=== PATIENT | male | born 1950 | race Caucasian/White ===

== ENCOUNTER → 2021-05-31 | Outpatient (CLI) | payer OTHER ==
[~2021-05-31] MED LIST: ACYCLOVIR 400400 MG PO; ASA81BEC PO; C-10001000 MG PO; CHLORPHENIRAMINE4 M1 PO; D3-501250 MCG PO; FISH OIL 1,001000 M3 PO; OLIVE LEAF EXT250 MG PO; SUPER THERAVIT1 EACH PO; WILZIN25 MG PO
== END ==
LOC: SJCVCIMAG 06:19
PROVIDERS: ATTEND Internal Medicine
DX: I08.3 Combined rheumatic disorders of mitral, aortic and tricuspid valves (principal); R06.00 Dyspnea, unspecified; I10 Essential (primary) hypertension; Z79.82 Long term (current) use of aspirin; Z79.899 Other long term (current) drug therapy

== ENCOUNTER → 2021-06-02 | Outpatient (CLI) | payer OTHER | LOC: SJCVC 14:02 | PROVIDERS: ATTEND Internal Medicine | DX: R07.9 Chest pain, unspecified (principal); I10 Essential (primary) hypertension; N52.1 Erectile dysfunction due to diseases classified elsewhere; R60.9 Edema, unspecified; N40.0 Benign prostatic hyperplasia without lower urinary tract symptoms; Z68.29 Body mass index [BMI] 29.0-29.9, adult; Z79.82 Long term (current) use of aspirin; Z79.899 Other long term (current) drug therapy ==

== ENCOUNTER 2021-06-04 09:33 | Inpatient (IN) | payer OTHER ==
[2021-06-04] VITALS (13 sets, daily range): BP systolic 130–149; BP diastolic 69–86
[~2021-06-04] VITALS: Ht 170.2 cm; Wt 75.7 kg
[2021-06-04] MEDS ORDERED: ACYCLOVIR 400400 MG PO (10:45)
[2021-06-04] MEDS ORDERED: C-10001000 MG PO (10:46)
[2021-06-04] MEDS ORDERED: ASA81BEC PO (10:47)
[2021-06-04] MEDS ORDERED: CHLORPHENIRAMINE4 M1 PO (10:49)
[2021-06-04] MEDS ORDERED: SUPER THERAVIT1 EACH PO (10:50)
[2021-06-04] MEDS ORDERED: WILZIN25 MG PO ×2 (10:50→10:51)
[2021-06-04] MEDS ORDERED: FISH OIL 1,001000 M3 PO (10:51)
[2021-06-04] MEDS ORDERED: OLIVE LEAF EXT250 MG PO (10:51)
[2021-06-04] MEDS ORDERED: D3-501250 MCG PO (10:52)
--- NOTE | 2021-06-04 16:37 | NUR ---
PT STATES HE IS "DEATHLY AFRAID" OF NEEDLES AND THAT HE IS REFUSING ALL BLOOD DRAWS. DR. MORALES WAS CALLED AND INFORMED THAT PT IS REFUSING APTT, INR AND CBC ORDERED. DR. MORALES STATES OK AND TO CANCEL THOSE 1ST ORDERED BLOOD DRAWS. PT REQUESTED PICC LINE OR CENTRAL LINE OR VALIUM. DR. MORALES STATED NO.
--- NOTE | 2021-06-04 20:43 | NUR ---
PT ARRIVED TO UNIT AT 1250 FROM STEPDOWN NURSE. PT WAS CATHED PER REPORT WITH NO INTERVENTION AND MANUAL PRESSURE WAS HELD WITH HEMOSTASIS OF 1230. PT WAS ON STRICT BED REST UNTIL 1550. ONCE PT WAS DONE WITH BED REST, PT AMBULATED TO BATHROOM WITH RN AND USED TOLIET. PT DENIES ANY PAIN.
[2021-06-04 23:10] LABS: ABSOLUTE NEUTROPHILS 5.2 thou/uL (1.4-8.2); BASOPHILS 0.3 % (0.0-2.0); EOSINOPHILS 2.4 % (0.0-3.0); HEMATOCRIT 43.5 % (42.0-52.0); HEMOGLOBIN 14.4 gm/dL (14.0-18.0); LYMPHOCYTES 32.1 % (24.0-44.0); MCH 29.8 pg (26.0-34.0); MCHC 33.1 g/dL (28.0-37.0); MONOCYTES 9.9 % (1.0-8.0); PLATELET COUNT 238 thou/uL (150-400); POLYS 55.3 % (36.0-66.0); RBC 4.84 mil/uL (4.50-6.00); RDW 13.5 % (10.5-14.5); WBC 9.4 thou/uL (4.0-11.0)
[2021-06-04 23:23] LABS: CALCIUM 7.9 mg/dL (8.5-10.1); CREATININE 0.9 mg/dL (0.7-1.3); POTASSIUM 3.9 mmol/L (3.5-5.1)
[2021-06-04 23:29] LABS: ALBUMIN 3.3 g/dL (3.4-5.0); TOTAL BILIRUBIN 0.5 mg/dL (0.2-1.0); TOTAL PROTEIN 6.2 g/dL (6.4-8.2)
[2021-06-05 00:04] VITALS: BP 133/76
[2021-06-05 06:05] VITALS: BP 128/77
--- NOTE | 2021-06-05 06:32 | NUR ---
PT BEEN RESTING IN NO ACUTE DISTRESS.A/OX4.VSS.S/P CARDIAC AKUA,RIGHT GROIN DRESSING CDI,NO HEMATOMA OR ACTIVE BLEEDING TO RIGHT GROIN THIS SHIFT.PT HAVE MVD, CABG PLANNED FOR MONDAY.ON HEPARIN DRIP PER CARDIOLOGY PROTOCOL.PT AGREED FOR LABS DRAW TO BE DRAWN AFTER BEING GIVEN ANXIETY MEDS.PT DENIES CHEST PAIN.VOIDS VIA URINAL.DENIES ANY NEEDS AT THIS TIME.WILL CONT TO MONITOR PER POC.
[2021-06-05 08:26] VITALS: BP 123/67
[2021-06-05 09:54] LABS: URINE BILIRUBIN NEGATIVE (Negative); URINE BLOOD NEGATIVE (Negative); URINE CLARITY CLEAR; URINE COLOR YELLOW; URINE GLUCOSE-RANDOM* NEGATIVE (Negative); URINE KETONES 1+ (Negative); URINE LEUKOCYTES-REFLEX NEGATIVE (Negative); URINE NITRITE-REFLEX NEGATIVE (Negative); URINE PROTEIN (DIPSTICK) NEGATIVE (Negative); URINE UROBILINOGEN 0.2 E.U./dl (0.2-1.0)
--- NOTE | 2021-06-05 10:53 | EKG ---
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
[2021-06-05 11:07] VITALS: BP 135/74
[2021-06-05 12:44] LABS: CHOLESTEROL 160 mg/dL (<200); HDL CHOLESTEROL 50 mg/dL (>40); LDL CHOLESTEROL 95 mg/dL (<100); TC:HDL 3.2 Ratio (Not establshd); TRIGLYCERIDE 79 mg/dL (<150); VLDL 16 mg/dL (<40)
--- NOTE | 2021-06-05 15:04 | NUR ---
ASSUMED PATIENT CAre at 0700. a/o x4. denies chest pain. on heparin gtt. no stress noted. solwly towards poc goals.
[2021-06-05 15:49] VITALS: BP 124/65
[2021-06-05 19:25] VITALS: BP 127/65
[2021-06-06 04:23] VITALS: BP 119/57
[2021-06-06 05:36] LABS: GLYCOHEMOGLOBIN (HGB A1C) 5.5 % (4.8-5.6)
--- NOTE | 2021-06-06 06:30 | NUR ---
Pt slept well most of night. Mild anxiety regarding upcoming procedure noted. Questions and concerns addressed. Pt expressed that anxiety improved. Monitor showed SR. Denied SOB. Denied chest pain. Denied dizziness. Heparin gtt infusing without titration this shift. Pt voided w/o via urinal. No BM.
[2021-06-06 07:05] VITALS: BP 125/57
--- NOTE | 2021-06-06 09:04 | HC ---
[facility] [place] [address] CONSULTATION Name: ONELIA COHN Room #: 200-I [facility] Vernell Heard#: [id number] Admission: 06/04/21 Attend Phys: Oswaldo Junior Discharge: Date of : 48 Report #: [id number] THIS REPORT FOR: cc: Abhi Price MD, Steven E. MD Forman, John M. MD ~ We were asked to see the patient by Dr. Junior. HISTORY OF PRESENT ILLNESS: The patient is a 70-year-old with coronary artery disease. The patient states he began having exertional angina in December or January. He attributed this to wearing an N95 mask, but when the patient had similar chest discomfort when pushing his lawnmower, he realized that this could be coronary artery disease. Stress test was ordered and ultimately cardiac catheterization was done today by Dr. Junior, this shows a 95% distal left main stenosis in addition to other disease. Left ventricular function appears normal by ventriculogram. The patient states he is a generally healthy fellow. He does not take lipid medicine at home or at least has until recently and denies having problems with hypertension and diabetes mellitus. ALLERGIES: None known. HOME MEDICATIONS: The patient takes olive oil extract as a natural antibiotic for chronic bronchitis. 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 He is . The patient denies tobacco use. FAMILY HISTORY: Positive for coronary artery disease, but this appears to be in males older than 55 years old. REVIEW OF SYSTEMS: GENERAL: No weight change, fever, or chills. EYES: Wears glasses. HEENT: No headache, sore throat, or ear problems. RESPIRATORY: Chronic bronchitis that is treated with this natural medicine. CARDIAC: Exertional angina. As mentioned, no rest pain. No night pain. GASTROINTESTINAL: Denies nausea, vomiting, diarrhea or blood. GENITOURINARY: Denies urgency, frequency, blood. MUSCULOSKELETAL: Denies bone or joint pain. SKIN: Denies rash or infection. NEUROLOGIC: Denies motor or sensory dysfunction. ENDOCRINE: Denies goiter or tremor. [facility] [address] [place] [address] CONSULTATION Name: CHRISFÁTIMAALMAONELIA Room #: 200-I [facility]#: [id number] Admission: 06/04/21 Attend Phys: Oswaldo Junior Discharge: Date of : 48 Report #: [id number] PHYSICAL EXAMINATION: GENERAL: The patient is lying in bed, awake and alert. VITAL SIGNS: Temperature 36.6, heart rate 80, respiratory rate 16-20, blood pressure 140/75, pulse ox 98 on room air. HEENT: No scleral icterus. No arcus. NECK: No mass, no bruit. CHEST: Clear to auscultation. HEART: Rhythm regular, no murmur. ABDOMEN: Soft. EXTREMITIES: No clubbing, cyanosis or edema, 2+ dorsalis pedis pulses. SKIN: No rash or infection. MUSCULOSKELETAL: No bone or joint asymmetry or deformity. PSYCHIATRIC: Shows insight into problem, oriented x 3, pleasant fellow. ASSESSMENT AND PLAN: The patient has important left main coronary artery disease in the setting of good ventricular function and increasing exertional angina. We have recommended coronary artery bypass surgery. Risks include but are not limited to bleeding, infection, anesthesia risks, heart and lung problems, stroke and . Options and alternatives were reviewed. The patient understands all of this and wishes to proceed. We will try to arrange surgery for Monday. It is a privilege to participate in this challenging patient's care. Thank you for the consult. <ELECTRONICALLY SIGNED> By: Chandana Godwin MD 06/06/21 0904 1546 2358 Chandana Godwin MD /nt
[2021-06-06 11:30] VITALS: BP 122/58
[2021-06-06 15:36] VITALS: BP 129/70
--- NOTE | 2021-06-06 18:15 | NUR ---
ASSESSMENT CHARTED - MEDS PER ARIEL - BOBBY DEIT AND FLUIDS. NO CO'S OF PAIN OR NAUSEA. UP IN ROOM TOLERATED. HEPARIN CONTINUES PER PROTOCOL. PT FOR OPEN HEART SURGERY IN THE AM. NO CO'S AT THE PRESENT TIME.
[2021-06-06 18:40] VITALS: BP 142/75
[2021-06-06 20:04] VITALS: BP 132/76
[2021-06-07] VITALS (35 sets, daily range): BP systolic 81–143; BP diastolic 45–71
--- NOTE | 2021-06-07 06:21 | NUR ---
PT UP THIS AM WITH OUT ANY C/O PAIN, NPO SINCE MNOC, CONSENT SIGNED, UP TO VOID IN BR, VSS,FAMILY AT BEDSIDE,REPORT GIVEN TO PREOP PT LEFT PER CART.
[2021-06-07 12:33] LABS: HEMATOCRIT 26.3 % (42.0-52.0); MCH 30.6 pg (26.0-34.0); MCHC 34.4 g/dL (28.0-37.0); MCV 89.1 fL (80.0-100.0); RBC 2.95 mil/uL (4.50-6.00); RDW 13.4 % (10.5-14.5); WBC 10.8 thou/uL (4.0-11.0)
[2021-06-07 12:49] LABS: APTT 27.3 Seconds (24.5-32.8); INR 1.42; PROTIME 15.2 Seconds (10.5-12.1)
[2021-06-07 13:31] LABS: POC BE 5 mmol/L (-2.0 to +3.0); POC CA IONIZED 4.7 mg/dL (4.5-5.3); POC GLUCOSE 109 mg/dL (70-99); POC HEMOGLOBIN 12.9 g/dL (14.0-18.0); POC SODIUM 138 mmol/L (136-145); POC pCO2 30.7 mmHg (35.0-45.0); POC pH 7.552 (7.360-7.450)
[2021-06-07 13:31] LABS: POC BE 2 mmol/L (-2.0 to +3.0); POC CA IONIZED 4.6 mg/dL (4.5-5.3); POC GLUCOSE 144 mg/dL (70-99); POC HCO3 26.5 mmol/L (22.0-26.0); POC HEMOGLOBIN 12.6 g/dL (14.0-18.0); POC SODIUM 137 mmol/L (136-145); POC pCO2 39.2 mmHg (35.0-45.0); POC pH 7.438 (7.360-7.450)
[2021-06-07 13:32] LABS: POC BE -3 mmol/L (-2.0 to +3.0); POC CA IONIZED 4.7 mg/dL (4.5-5.3); POC GLUCOSE 152 mg/dL (70-99); POC HCO3 22.5 mmol/L (22.0-26.0); POC HEMOGLOBIN 10.2 g/dL (14.0-18.0); POC POTASSIUM 3.7 mmol/L (3.5-5.1); POC SODIUM 142 mmol/L (136-145); POC pCO2 40.9 mmHg (35.0-45.0); POC pH 7.349 (7.360-7.450)
[2021-06-07 13:32] LABS: POC BE 1 mmol/L (-2.0 to +3.0); POC GLUCOSE 141 mg/dL (70-99); POC HEMOGLOBIN 9.5 g/dL (14.0-18.0); POC POTASSIUM 5.1 mmol/L (3.5-5.1); POC SODIUM 136 mmol/L (136-145); POC pCO2 31.2 mmHg (35.0-45.0); POC pH 7.495 (7.360-7.450)
[2021-06-07 13:32] LABS: POC BE 0 mmol/L (-2.0 to +3.0); POC CA IONIZED 5.3 mg/dL (4.5-5.3); POC GLUCOSE 140 mg/dL (70-99); POC HCO3 24.8 mmol/L (22.0-26.0); POC HEMOGLOBIN 8.8 g/dL (14.0-18.0); POC POTASSIUM 3.9 mmol/L (3.5-5.1); POC SODIUM 139 mmol/L (136-145); POC pCO2 39.6 mmHg (35.0-45.0); POC pH 7.404 (7.360-7.450)
[2021-06-07 13:32] LABS: POC BE 1 mmol/L (-2.0 to +3.0); POC CA IONIZED 4.1 mg/dL (4.5-5.3); POC GLUCOSE 161 mg/dL (70-99); POC HCO3 24.3 mmol/L (22.0-26.0); POC HEMOGLOBIN 8.8 g/dL (14.0-18.0); POC POTASSIUM 4.9 mmol/L (3.5-5.1); POC SODIUM 139 mmol/L (136-145); POC pCO2 33.6 mmHg (35.0-45.0); POC pH 7.467 (7.360-7.450)
[2021-06-07 13:32] LABS: POC BE 1 mmol/L (-2.0 to +3.0); POC CA IONIZED 4.2 mg/dL (4.5-5.3); POC GLUCOSE 160 mg/dL (70-99); POC HCO3 25.2 mmol/L (22.0-26.0); POC HEMOGLOBIN 8.8 g/dL (14.0-18.0); POC POTASSIUM 4.9 mmol/L (3.5-5.1); POC SODIUM 138 mmol/L (136-145); POC pCO2 38.2 mmHg (35.0-45.0); POC pH 7.427 (7.360-7.450)
[2021-06-07 13:32] LABS: POC BE 3 mmol/L (-2.0 to +3.0); POC CA IONIZED 4.2 mg/dL (4.5-5.3); POC GLUCOSE 156 mg/dL (70-99); POC HCO3 27.1 mmol/L (22.0-26.0); POC HEMOGLOBIN 8.8 g/dL (14.0-18.0); POC POTASSIUM 4.6 mmol/L (3.5-5.1); POC SODIUM 139 mmol/L (136-145); POC pCO2 41.3 mmHg (35.0-45.0); POC pH 7.425 (7.360-7.450)
--- NOTE | 2021-06-07 14:00 | NUR ---
PT recieved from the OR sedated and intubated. Occ by the OR nursing team and Anes. RT called and placed on the Vent. All lines and Chest tubes attached and allwaveforms look good. monitor shows NSR no ectoptics. pacemaker off. chest tubes draining minimal drainage. the only Drip at present is Precedex. for comfort. See hemodyanmic in CCFS. will process with CAGB Standing orders.
[2021-06-07 14:08] LABS: HEMATOCRIT 29.3 % (42.0-52.0); HEMOGLOBIN 9.9 gm/dL (14.0-18.0); MCH 29.9 pg (26.0-34.0); MCHC 33.6 g/dL (28.0-37.0); MCV 89.1 fL (80.0-100.0); RBC 3.29 mil/uL (4.50-6.00); RDW 13.6 % (10.5-14.5); WBC 14.8 thou/uL (4.0-11.0)
[2021-06-07 14:18] LABS: CALCIUM 7.7 mg/dL (8.5-10.1); CREATININE 0.8 mg/dL (0.7-1.3); MAGNESIUM 2.3 mg/dL (1.8-2.4); POTASSIUM 3.9 mmol/L (3.5-5.1)
[2021-06-07 14:23] LABS: APTT 26.6 Seconds (24.5-32.8); INR 1.19; PROTIME 12.9 Seconds (10.5-12.1)
[2021-06-07 14:43] LABS: BE(vivo) -3.1 mmol/L (-2 to +3); HCO3 22.1 mmol/L (22.0-26.0); PCO2 39.9 mmHg (35.0-45.0); PO2 170.3 mmHg (80.0-100.0); pH 7.361 (7.360-7.450); sO2 99.1 % (92.0-98.0)
--- NOTE | 2021-06-07 15:00 | NUR ---
Dr Godwin and Titi here for support. CABG Orders done. Updated as needed.
--- NOTE | 2021-06-07 16:00 | NUR ---
No changes to his assessment. at bedside and update given, questions answered. Phone number to the Unit given to her. Plan of Care discussed. Dr Godwin has spoken to her.
--- NOTE | 2021-06-07 16:00 | NUR ---
Dr Godwin here to see. Updated on pt.
[2021-06-07 17:26] LABS: BE(vivo) -5.2 mmol/L (-2 to +3); HCO3 18.2 mmol/L (22.0-26.0); PCO2 28.8 mmHg (35.0-45.0); PO2 183.9 mmHg (80.0-100.0); pH 7.419 (7.360-7.450); sO2 99.3 % (92.0-98.0)
--- NOTE | 2021-06-07 17:35 | NUR ---
Pt extubated and is doing well. FS @ 40% placed. Pt states that he has post nasal drainage. HOB elevated for comfort. Will continue to monitor.
--- NOTE | 2021-06-07 19:00 | NUR ---
report given to oncoming RN.
--- NOTE | 2021-06-07 20:00 | NUR ---
DR KERNS HERE AMIO GTT DCD 250 CC ALBUMIN ORDERED. PT C/O OF NECK PAIN. WILL CONT TO MONITOR
[2021-06-08] VITALS (17 sets, daily range): BP systolic 80–118; BP diastolic 41–54
--- NOTE | 2021-06-08 06:00 | NUR ---
PT IS AWAKE AND ALERT. VSS SINUS RHYTHM. LUNGS DIMINISHED BILAT. O2 SAT 100 % ON 2 L NC PER PT REQUEST. INSULIN GTT AT 6 UNITS. LEVOPHED 3 MCG MG GTT AT 40/HR AND PRECEDEX GTT AT 3 MCG. TOTAL OF 320 CC UO 280 CC PLEURAL AND [address] THIS SHIFT. AFEBRILE CO 4.7 CI 2.4 CVP 14 STERNAL DSG INTACT WITH CARMELA DSG LEFT LEG DRESSINGS INTACT PROGRESSING TOWARD GOALS. WILL CONT TO MONITOR.
--- NOTE | 2021-06-08 06:01 | NUR ---
Pt remains stable in this shift. No s/sx of any distress indicates. He was very anxious last night after c/o dry heaving. Unable to relax ,gave Xanax 0.25 mg PO once with good result. He denies of any CP. Report can't get enough air at times. Encouraging to use I/S , deep breathing and coughing in this shift. VSS. All lines remains inplaced. Hb 6.5 mg/Dl . No obvious signs of active bleeding indicates. Will admin 1 unit of PRBC once it available. Continue working toward goals.
[2021-06-08 06:20] LABS: HEMATOCRIT 23.3 % (42.0-52.0); MCH 30.4 pg (26.0-34.0); MCHC 34.1 g/dL (28.0-37.0); MCV 89.2 fL (80.0-100.0); RBC 2.61 mil/uL (4.50-6.00); RDW 13.9 % (10.5-14.5); WBC 12.9 thou/uL (4.0-11.0)
[2021-06-08 06:26] LABS: CALCIUM 7.9 mg/dL (8.5-10.1); CREATININE 1.1 mg/dL (0.7-1.3); MAGNESIUM 2.2 mg/dL (1.8-2.4); POTASSIUM 4.2 mmol/L (3.5-5.1)
[2021-06-08 06:45] LABS: HEMOGLOBIN 7.9 gm/dL (14.0-18.0)
--- NOTE | 2021-06-08 07:15 | EKG ---
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 : 1950 Requested By: Oc Pang Order Number: [id number] MD: Nico Burciaga Measurements Intervals [place] Rate: 88 P: 75 CO: 100 QRS: 51 QRSD: 87 T: 31 QT: 363 QTc: 440 Interpretive Statements Sinus rhythm Short CO interval Abnormal R-wave progression, early transition Compared to ECG 06/05/2021 08:10:23 Short CO interval now present Electronically Signed On 06-08-2021 7:15:36 CDT by Nico Burciaga [email or web address] <ELECTRONICALLY SIGNED> By: Nico Burciaga MD, [facility] [id number] 29 Nico Burciaga MD, [facility] /EPI
--- NOTE | 2021-06-08 07:56 | NUR ---
RD consult education. S/P CABG x 4 on 06/07. Lipids under control, A1C 5.5. Prior to surgery was eating 50-100%. BMI 24. Presents low nutrition risk. Will address nutrition education needs following transfer out of ICU and at more appropriate time
--- NOTE | 2021-06-08 08:26 | EKG ---
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 : 1950 Requested By: Oc Pang Order Number: [id number] MD: Nico Burciaga Measurements Intervals [place] Rate: 90 P: 58 ND: 112 QRS: 21 QRSD: 69 T: 13 QT: 353 QTc: 432 Interpretive Statements Sinus rhythm Borderline short ND interval Abnormal R-wave progression, early transition ST elevation suggests acute pericarditis Compared to ECG 06/07/2021 16:30:29 ST (T wave) deviation now present Electronically Signed On 06-08-2021 8:26:29 CDT by Nico Burciaga [email or web address] <ELECTRONICALLY SIGNED> By: Nico Burciaga MD, FAC 06/08/21 0826 2 2 Nico Burciaga MD, [facility] /EPI
--- NOTE | 2021-06-08 09:15 | NUR ---
Chart review. S/P CABG. Cm visited with willie at bedside. Intro to cm and dcp. He lives at home with his , independent when feeling ok. No dme, manage own medication. Drives. 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 No rehab or hh in past. Will cont following as needed for dc needs. Willie requested pillow underneath bilat arms be repositioned. Cm assist pt. with that. End of visited bedside nurse in room with willie.
[2021-06-09] VITALS (14 sets, daily range): BP systolic 99–134; BP diastolic 46–58
[2021-06-09 05:13] LABS: HEMOGLOBIN 6.5 gm/dL (14.0-18.0); MCH 31.3 pg (26.0-34.0); MCHC 35.1 g/dL (28.0-37.0); MCV 89.2 fL (80.0-100.0); RBC 2.07 mil/uL (4.50-6.00); RDW 13.6 % (10.5-14.5); WBC 11.7 thou/uL (4.0-11.0)
[2021-06-09 05:17] LABS: HEMATOCRIT 18.5 % (42.0-52.0)
[2021-06-09 05:30] LABS: ALBUMIN 3.1 g/dL (3.4-5.0); CALCIUM 7.9 mg/dL (8.5-10.1); CREATININE 1.1 mg/dL (0.7-1.3); POTASSIUM 3.9 mmol/L (3.5-5.1); TOTAL BILIRUBIN 0.2 mg/dL (0.2-1.0); TOTAL PROTEIN 5.3 g/dL (6.4-8.2)
--- NOTE | 2021-06-09 07:40 | NUR ---
ASSUMMED CARE OF THIS PATIENT FROM THE NIGHT NURSE, GARY MOURA.
[2021-06-09 09:30] LABS: % SATURATION 12 % (20-39); IRON 14 ug/dL (65-175); TIBC 117 ug/dL (250-450)
[2021-06-09 15:09] LABS: HEMATOCRIT 21.6 % (42.0-52.0); HEMOGLOBIN 7.4 gm/dL (14.0-18.0)
--- NOTE | 2021-06-09 19:41 | NUR ---
PATIENT IS PROGRESSING TOWARDS OUTCOME GOALS. AT THE BEDSIDE MOST OF THE DAY. QUESTIONS ANSWERED AND REASSURANCE GIVEN WELL UPDATED ON THE POC. PATIENT IS NAUSEA FREE TODAY. 1 UNIT OF PRBC'S GIVEN. LINES DC'D PER ORDER AND UP IN THE CHAIR FOR DINNER. MONITOR NSR. VSS. GOOD PRODUCTIVE COUGH.
[2021-06-10] VITALS (17 sets, daily range): BP systolic 96–132; BP diastolic 46–60
--- NOTE | 2021-06-10 11:30 | CATHLAB ---
[facility] [place] [address] INVASIVE PROCEDURE REPORT Name: ONELIA COHN Room #: 251-P ADM IN M.R.#: [id number] Admission: 06/04/21 Attend Phys: Oswaldo Junior Discharge: Date of : 48 Report #: [id number] THIS REPORT FOR: cc: Abhi Price MD, Steven E. MD Lammoglia, Francisco J. MD ~ APPROVED REPORT Study performed: 06/04/2021 11:21:03 Patient Details Patient Status: Out-Patient Room #: The patient is a 70 year-old male Event Personnel Oswaldo Junior [employer]ater, Yeimy Boston RN RN, Nancy Hudson RTR, Robbie Turner Alison RT(R)() Monitor Procedures Performed Art Access - R femoral artery* Left Heart Cath w/or w/o Coronaries [id number] [facility] Hemostasis with Manual pressure 20846 Initial Mod Sed Same Phys/QHP Gr5y 774220, supervision of conscious sedation Indication Dyspnea, Positive stress test, Chest pain Procedure Narrative The Right Groin^ was infiltrated with 1% Lidocaine subcutaneous anesthesia. A PINNACLE 4FR Sheath #[id number] sheath was inserted into the RFA 4F^. Coronary angiography was performed using coronary diagnostic catheters. The right coronary system was accessed and visualized with a JR4 catheter. The left coronary system was accessed and visualized with a JL4 catheter. The left ventricle was accessed and visualized with a PIGTAIL catheter. Hemostasis was obtained with manual pressure following sheath removal without any complications. The patient tolerated the procedure well and there were no complications associated with the procedure. There was no hematoma. Intraoperative Conscious Sedation Versed 2 mg [facility] [place] [address] INVASIVE PROCEDURE REPORT Name: ONELIA COHN Room #: 251-P [facility]#: [id number] Admission: 06/04/21 Attend Phys: Oswaldo Cook Discharge: Date of : 48 Report #: [id number] Fluoro Time: 2.08 minutes Dose: DAP 1652.50 cGycm2 Contrast Type and Amount: Omnipaque 52 ml Coronary Angiography The patient's coronary anatomy is right dominant. Diagnostic Cath Left Main Large-caliber vessel normal origin which has high-grade greater than 95% distal lesion involving the origin of the left circumflex and left anterior descending. There is haziness which may represent calcium or some degree of thrombus. Flow is SARAH-3 LAD Moderate caliber type II vessel coursing in anterior interventricular sulcus. At the origin there is an eccentric lesion which is high-grade. The vessel reconstitutes continues gives rise to diagonal branches. The proximal midportion there is an eccentric 50% lesion as the vessel continues in the interventricular sulcus towards the apex Diagonal 1 Small caliber vessel without high-grade lesions Circumflex Moderate caliber nondominant vessel he has a subtotal lesion at its origin with a left main. The vessel continues on any AV groove short distance and gives rise to moderate caliber marginal branch free of high-grade disease. OM1 First marginal branch essentially the circumflex proper as described above. Right Coronary Large-caliber dominant vessel of normal origin proceeds in the AV groove to the acute margin. Small RV and RA branches are giving rise. It then continues with aggressive however a moderate caliber tortuous posterior descending artery originates. Only mild irregularities of less than 30% are noted in the RCA proper R PDA Moderate caliber tortuous vessel and posterior interventricular sulcus towards the apex without high-grade lesion Left Ventriculography Left Ventriculography was not performed. Hemodynamics The aortic pressure is 147/79 mmHg with a mean of 111 mmHg. The left ventricular pressure is 137/5 mmHg with a mean of mmHg. The left ventricular end diastolic pressure is 17 mmHg. Conclusion [facility] [address] [place] [address] INVASIVE PROCEDURE REPORT Name: ONELIA COHN Room #: 251-P [facility] IN .R.#: [id number] Admission: 06/04/21 Attend Phys: Oswaldo Cook Discharge: Date of : 48 Report #: [id number] 1. Coronary disease severe involving the junction of the distal left main left into descending left circumflex. 2. Abnormal hemodynamics Recommendations CABG In view of the patient's high-grade lesion and symptoms prior to presentation the patient will be admitted to the hospital and will undergo urgent aortic or bypass grafting on Monday. We will anticoagulate over the weekend as cardiothoracic surgery prepped for procedure <ELECTRONICALLY SIGNED> By: Oswaldo Junior MD 06/10/21 1129 1129 112 Oswaldo Junior MD /INF
--- NOTE | 2021-06-10 11:53 | NUR ---
Cm following along for any dc planning needs. Case discussed with the care team and therapy recommendations reveiwed. Pt is progressing pod#3 s/p CABGx4. He did recieve a unit of blood yesterday. Pt will likely be able to dc home with his with the goal of outpt cardiac rehab f/u. TX to CCU when bed available. Now on 3liters of o2. Will continue to follow should dc needs arise.
--- NOTE | 2021-06-10 19:52 | NUR ---
pt transfer report received and pt care will be assumed on pt arrival to room 212
--- NOTE | 2021-06-10 20:14 | NUR ---
Pt transferred to CCU room 212 at 1950. Pt in wheelchair and tolerated tranfer well. VS WNL and pt's possession moved with him.
[2021-06-11 00:04] VITALS: BP 108/66
[2021-06-11 03:10] LABS: ABSOLUTE NEUTROPHILS 7.2 thou/uL (1.4-8.2); BASOPHILS 0.2 % (0.0-2.0); HEMATOCRIT 22.9 % (42.0-52.0); HEMOGLOBIN 7.8 gm/dL (14.0-18.0); MCH 30.5 pg (26.0-34.0); MCHC 33.9 g/dL (28.0-37.0); MCV 90.2 fL (80.0-100.0); MONOCYTES 15.7 % (1.0-8.0); PLATELET COUNT 168 thou/uL (150-400); POLYS 62.1 % (36.0-66.0); RBC 2.54 mil/uL (4.50-6.00); WBC 11.6 thou/uL (4.0-11.0)
[2021-06-11 03:35] LABS: ALBUMIN 2.8 g/dL (3.4-5.0); CALCIUM 8.4 mg/dL (8.5-10.1); CREATININE 0.9 mg/dL (0.7-1.3); POTASSIUM 4.4 mmol/L (3.5-5.1); TOTAL BILIRUBIN 0.6 mg/dL (0.2-1.0); TOTAL PROTEIN 5.5 g/dL (6.4-8.2)
[2021-06-11 05:52] VITALS: BP 127/70
--- NOTE | 2021-06-11 07:19 | EKG ---
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 : 1950 Requested By: Oc Pang Order Number: [id number] MD: Nico Burciaga Measurements Intervals [place] Rate: 86 P: 43 TN: 130 QRS: 12 QRSD: 75 T: 7 QT: 371 QTc: 444 Interpretive Statements Sinus rhythm Consider right atrial enlargement Compared to ECG 06/08/2021 07:23:20 ST (T wave) deviation no longer present Electronically Signed On 06-11-2021 7:19:05 CDT by Nico Burciaga [email or web address] <ELECTRONICALLY SIGNED> By: Nico Burciaga MD, [facility] 06/11/21718 4 4 Nico Burciaga MD, [facility] /EPI
[2021-06-11 07:40] VITALS: BP 130/75
[2021-06-11 11:50] VITALS: BP 115/65
[2021-06-11 15:30] VITALS: BP 115/65
--- NOTE | 2021-06-11 17:43 | NUR ---
ASSUMED CARE SHIFT CHANGE. VSS. DENIES PAIN/SOB. SR TELE. SHOWER WITH OT, CARMELA DRESSING CHANGED. PT UP WITH PHYS THERAPY BOBBY WELL. O2 SATS WNL ROOM AIR &2L O2. PT CURRENTLY ON 2L O2 FOR COMFORT. FAMILY AT BEDSIDE. PLAN FOR DC IN AM. CONT CURRENT POC. WILL PASS REPORT TO CARL MOURA.
[2021-06-11 19:54] VITALS: BP 123/54
[2021-06-12 04:25] VITALS: BP 136/58
--- NOTE | 2021-06-12 07:42 | NUR ---
CY PART OF SHIFT. PLANS FOR DISCHARGE THIS AM. DENIES COMPLAINTS OF PAIN POST CABG. CONTINUE TO ASSESS RUTH ANN.
[2021-06-12 07:55] VITALS: BP 127/57
[2021-06-12 11:16] VITALS: BP 118/68
[2021-06-12] MEDS ORDERED: IRON325 PO (11:35)
[2021-06-12] MEDS ORDERED: METOPROLOL TART25 MG PO (11:36)
[2021-06-12] MEDS ORDERED: PEPCID20 MG PO (11:36)
[2021-06-12] MEDS ORDERED: MIRALAX17 GM PO (11:37)
[2021-06-12] MEDS ORDERED: AMIODARONE HCL400 MG PO (11:47)
[2021-06-12 12:00] VITALS: BP 118/68
--- NOTE | 2021-06-12 12:16 | NUR ---
RECEIVED THE PATIENT CONSCIOUS AND ORIENTED.ON ROOM AIR BREATHING SPONTANEOSULY.NOT IN PAIN OR DISTRESS.WITH STERNAL DRESSING ON CARMELA DRESSING C/D/I.SEEN BY DR. CONN AND DR. GUILLORY.DISCHARGE PACKET GIVEN AND EVERYTHING WAS EXPLAINED TO THE PATIENT.DISCHARGED PATIENT FROM THE HOSPITAL ON STABLE CONDITION.
--- NOTE | 2021-06-14 12:21 | O ---
[facility] [place] [address] OPERATIVE REPORT Name: ONELIA COHN Room #: 212-P [facility] IN M.R.#: [id number] Admission: 06/04/21 Attend Phys: Oswaldo Junior Discharge: 06/12/21 Date of : 48 Report #: [id number] THIS REPORT FOR: cc: Abhi Price MD, Steven E. MD Forman, John M. MD ~ DATE OF SERVICE: 06/07/2021 PREOPERATIVE DIAGNOSIS: Coronary artery disease. POSTOPERATIVE DIAGNOSIS: Coronary artery disease. OPERATION: Coronary artery bypass x4 including left internal mammary artery to left anterior descending artery, saphenous vein to diagonal and marginal and saphenous vein to posterior descending artery and endoscopic harvest, left greater saphenous vein. SURGEON: Chandana Godwin MD. CLERICAL PROOFREADER: FRIDA Sharma. ANESTHESIA: General. INDICATIONS: The patient is a 70-year-old seen for Dr. Junior. The patient has increasing exertional angina. Cardiac catheterization demonstrates 95% distal left main stenosis along with moderately severe right coronary lesion. Left ventricular function is satisfactory. FINDINGS AND TECHNIQUE: After general anesthesia was established, saphenous vein was harvested and prepared for use as a conduit. Exposure was obtained through median sternotomy. Left internal mammary artery was harvested from chest wall. Pericardial well was made. Cannulation suture was placed. Heparin was given. Aorta was cannulated. Right atrium was cannulated. Cardioplegia needle was positioned in the aortic root. Retrograde cardioplegia catheter was placed in the coronary sinus. Cardiopulmonary bypass was established. The aorta was crossclamped. The heart was stopped. During electromechanical arrest, the distal anastomoses were performed. An end-to-side anastomosis was made between vein and the posterior descending artery. Cold cardioplegia was given. A separate segment of vein was sewn in end-to-side fashion to the large obtuse marginal artery. Cold cardioplegia was given. The same segment of vein was sewn in end-to-side fashion to the large diagonal artery. Cold cardioplegia was given. Left internal mammary artery was sewn in end-to-side fashion to left anterior descending artery. The LAD was small as expected, but we had good flow through it and the anastomosis was checked with the temperature technique and the Doppler. [facility] [address] [place] [address] OPERATIVE REPORT Name: CHRISONELIA CAMILO Room #: 212-P [facility].#: [id number] Admission: 06/04/21 Attend Phys: Oswaldo Junior Discharge: 06/12/21 Date of : 48 Report #: [id number] Cold cardioplegia was given. Two Proximal anastomoses were performed. When these were complete, warm retrograde cardioplegia was given followed by warm continuous blood through the coronary sinus. When this infusion was complete, the crossclamp was removed. De-airing maneuvers were performed. The anastomoses were inspected and found to be satisfactory. As the patient warmed, nice cardiac activity resumed, chest tubes and pacing wires were placed. A marker was placed around the proximal anastomoses. When the patient was warmed, she was weaned from cardiopulmonary bypass. Venous cannula was removed. Protamine was given, the aortic cannula was removed. Flows were measured in the bypass grafts. When hemostasis was satisfactory, chest was irrigated with antibiotic solution and closed in the usual fashion. The patient was taken to the Intensive Care Unit in good condition having tolerated the procedure well. All counts were reported as correct. <ELECTRONICALLY SIGNED> By: Chandana Godwin MD 06/14/21 1221 1430 1754 Chandana Godwin MD /nt
== END 2021-06-12 12:15 | disposition home or self-care (01) | DRG 233 ==
LOC: CATH 09:33 → 2N 12:12 → CATH 12:14 → 2N 12:57 → EROBS 12:57 → ICU 12:57 → CATH 13:58 → EROBS 06-07 09:32 → ICU 06-07 14:43 → 2N 06-10 21:15
PROVIDERS: Internal Medicine; Nurse Practitioner Family; Physician Assistant; Surgery Vascular Surgery; ADMIT Internal Medicine; ATTEND Internal Medicine
PROC: B2111ZZ Fluoroscopy of Multiple Coronary Arteries using Low Osmolar Contrast (ICD-10-PCS; 2021-06-04)
PROC: 4A023N7 Measurement of Cardiac Sampling and Pressure, Left Heart, Percutaneous Approach (ICD-10-PCS; 2021-06-04)
PROC: 02HV33Z Insertion of Infusion Device into Superior Vena Cava, Percutaneous Approach (ICD-10-PCS; principal; 2021-06-07)
PROC: 4A133B1 Monitoring of Arterial Pressure, Peripheral, Percutaneous Approach (ICD-10-PCS; principal; 2021-06-07)
PROC: 30233M1 Transfusion of Nonautologous Plasma Cryoprecipitate into Peripheral Vein, Percutaneous Approach (ICD-10-PCS; principal; 2021-06-07)
PROC: 02100Z9 Bypass Coronary Artery, One Artery from Left Internal Mammary, Open Approach (ICD-10-PCS; principal; 2021-06-07)
PROC: 021209W Bypass Coronary Artery, Three Arteries from Aorta with Autologous Venous Tissue, Open Approach (ICD-10-PCS; principal; 2021-06-07)
PROC: 03HY32Z Insertion of Monitoring Device into Upper Artery, Percutaneous Approach (ICD-10-PCS; principal; 2021-06-07)
PROC: 06BQ4ZZ Excision of Left Saphenous Vein, Percutaneous Endoscopic Approach (ICD-10-PCS; principal; 2021-06-07)
PROC: 5A1221Z Performance of Cardiac Output, Continuous (ICD-10-PCS; principal; 2021-06-07)
PROC: 4A133J1 Monitoring of Arterial Pulse, Peripheral, Percutaneous Approach (ICD-10-PCS; principal; 2021-06-07)
PROC: 30233N1 Transfusion of Nonautologous Red Blood Cells into Peripheral Vein, Percutaneous Approach (ICD-10-PCS; 2021-06-09)
DX: I25.110 Atherosclerotic heart disease of native coronary artery with unstable angina pectoris (principal); J96.01 Acute respiratory failure with hypoxia; J98.11 Atelectasis; J90 Pleural effusion, not elsewhere classified; E78.5 Hyperlipidemia, unspecified; D64.9 Anemia, unspecified; I10 Essential (primary) hypertension; N40.0 Benign prostatic hyperplasia without lower urinary tract symptoms; D69.6 Thrombocytopenia, unspecified; I95.9 Hypotension, unspecified; R73.9 Hyperglycemia, unspecified
CPT/HCPCS: 10078; 10081; 47000; 47001; 47002; 47297; 48889; 50010; 50011; 50249; 50668; 51301; 52259; 52287; 53327; 53358; 54118; 56455; 56524; 56525; 56526; 56527; 56528; 56531; 56534; 56668; 56719; 56760; 56898; 57093; 57116; 57167; 58585; 58901; 62110; 62950; 65003; 65020; 65120; 65135; 83006; 85076